=== PATIENT | male | born 1955 | race Two or more races ===

== ENCOUNTER 2019-10-14 07:49 | Outpatient (CLI) | payer OTHER ==
[2019-10-14] MEDS ORDERED: COZAAR25 MG (11:23)
[2019-10-14] MEDS ORDERED: DOLOGEN CAPLET1 EACH PO (11:29)
[2019-10-14] MEDS ORDERED: EFFEXOR XR37.5 MG PO (11:30)
[2019-10-14] MEDS ORDERED: ZANAFLEX4 MG PO (11:30)
== END 2019-10-14 08:01 | disposition home or self-care (01) ==
LOC: RAD 07:49
DX: Z01.811 Encounter for preprocedural respiratory examination (principal); M99.73 Connective tissue and disc stenosis of intervertebral foramina of lumbar region; M99.53 Intervertebral disc stenosis of neural canal of lumbar region

== ENCOUNTER 2019-10-18 06:28 | Day surgery (SDC) | payer OTHER ==
[~2019-10-18 06:28] MED LIST: COZAAR25 MG; DOLOGEN CAPLET1 EACH PO; EFFEXOR XR37.5 MG PO; ZANAFLEX4 MG PO
== END 2019-10-18 14:25 | disposition home or self-care (01) ==
LOC: CIR.AMB 06:28
DX: M51.36 Other intervertebral disc degeneration, lumbar region (principal)